=== PATIENT | male | born 1985 | race Caucasian/White ===

== ENCOUNTER → 2018-10-11 | Outpatient (CLI) | payer BC, OTHER ==
[2018-10-11 15:48] LABS: SOURCE, BODY FLUID LT HIP; SYNOVIAL FLUID COLOR PALE YELLOW (YELLOW)
--- NOTE | 2018-10-12 13:26 | REP ---
LEFT HIP ASPIRATION The procedure was performed under the direct supervision of Dr. Morin. The risks and benefits of the procedure were explained to the patient and informed consent was obtained. The left prosthetic femoral neck was localized using fluoroscopic guidance. The skin was prepped and draped in a sterile fashion. 1% lidocaine was used as a local anesthetic. Using fluoroscopic guidance a 22-gauge spinal needle was inserted and advanced to the femoral neck. 6 ml of base colored fluid was withdrawn and sent to the lab for analysis. The patient tolerated the procedure well and there were no immediate complications. Less than 6 seconds of fluoroscopy time was utilized for this procedure. Reviewed by JENNIFER Ravi 10/11/2018 01:46 P Electronically Signed by Tom Morin MD 10/12/2018 01:17 P
== END ==
LOC: M RADPRO 12:20
PROVIDERS: ATTEND Orthopaedic Surgery
DX: M25.552 Pain in left hip (principal)